=== PATIENT | male | born 1960 | race Caucasian/White ===

== ENCOUNTER 2016-05-04 11:55 | Emergency (ER) | payer OTHER ==
[~2016-05-04] VITALS: Ht 175.3 cm; Wt 93.5 kg
[~2016-05-04 11:55] MED LIST: ALBUTEROL SULF8.5 GM IH; ALPRAZOLAM1 MG; ALPRAZOLAM1 MG PO; AMBIEN10 M1; AMBIEN10 M1 PO; AMOX TR-K CLV1 EAC4 PO; ATIVAN1 M1; ATIVAN1 M1 PO; Ambien PO; Augmentin PO; BACTRIM,SEPT1 TABLET PO; BENADRYL25 MG PO; CIPRO500 MG PO; COLACE100 MG PO; DAILY VALUE1 EACH PO; DIAZEPAM5 MG PO; DILAUDID4 MG PO; DOCUSATE SODIU100 MG; FEOSOL325 MG PO; FLAGYL500 MG PO; GLIPIZIDE XL5 MG PO; GLIPIZIDE-METF1 EAC1 PO; GLIPIZIDE5 M1 PO; GLUCOPHAGE XR1000 MG PO; LEVAQUIN500 MG PO; LEVAQUIN750 MG PO; LEVOFLOXACIN750 MG PO; LUNESTA2 MG; LUNESTA2 MG PO; MEDROL DOSEPAK4 MG PO; METAGLIP PO; METHADONE10 MG PO; MOTRIN800 MG PO; MS CONTIN,ORAMO30 MG PO; Methadone HCl PO; Methadone PO; NOHOMEMEDS; OXYCODONE HCL15 MG PO; OXYCODONE15 MG PO; PEPCID20 MG PO; PERCOCET 10/1 TABLET PO; PREDNISONE10 MG; PREDNISONE10 MG PO; PROMETHAZINE HC25 M1; PriLOSEC PO; TRAZODONE HCL50 MG PO; Tylenol Regular Stre PO; ULTRAM50 MG PO; VALIUM5 MG PO; XANAX1 MG PO; ZANTAC150 MG PO; ZOFRAN4 MG PO; ZOLPIDEM TARTRA10 MG; Zocor PO; oxyCODONE PO
[2016-05-04 12:49] LABS: HEMATOCRIT 39.5 % (38.0-50.0); MCH 29.1 PG (29.0-34.0); MCHC 34.2 G/DL (30.0-36.0); MCV 85.1 FL (86-99); MEAN PLAT.VOLUME 10.4 uM^3 (9.0-12.4); PLATELET COUNT 114 K/uL (156-360); RBC DIS.WIDTH-CV 13.5 % (11.8-14.6); RBC DIS.WIDTH-SD 41.9 % (39-53); RED BLOOD COUNT 4.64 M/uL (4.00-5.50); WHITE BLOOD COUNT 3.4 K/uL (4.1-10.2)
[2016-05-04 13:00] LABS: CHLORIDE 94 mEq/L (99-109); POTASSIUM 3.3 mEq/L (3.7-5.4); SODIUM 134 mEq/L (136-147)
[2016-05-04 13:02] LABS: GLUCOSE 105 mg/dL (70-99)
[2016-05-04 13:03] LABS: ANION GAP 11 MEQ/L (2-14)
[2016-05-04 13:06] LABS: GFR ESTIMATE (CALCULATED) > 59 mL/min/
[2016-05-04 13:07] LABS: UREA NITROGEN (BUN) 8 mg/dL (9-23)
[2016-05-04 13:11] LABS: TROP-I INTERPRETATION NEGATIVE; TROPONIN-I < 0.01 ng/mL (0.0-0.30)
[2016-05-04] MEDS ORDERED: HYCODAN SYRUP480 ML PO (13:34)
[2016-05-04] MEDS ORDERED: VENTOLIN HFA18 GM IH (13:34)
[2016-05-04] MEDS ORDERED: LEVAQUIN750 MG PO (13:43)
[2016-05-04 13:53] VITALS: BP 124/66
== END 2016-05-04 13:55 | disposition home or self-care (01) ==
LOC: EME 11:55
PROVIDERS: Nurse Practitioner Family
DX: J18.9 Pneumonia, unspecified organism (principal); Z85.038 Personal history of other malignant neoplasm of large intestine; C78.7 Secondary malignant neoplasm of liver and intrahepatic bile duct; Z86.14 Personal history of Methicillin resistant Staphylococcus aureus infection; Z90.89 Acquired absence of other organs; E11.9 Type 2 diabetes mellitus without complications; Z79.84 Long term (current) use of oral hypoglycemic drugs; M54.9 Dorsalgia, unspecified; G89.29 Other chronic pain
CPT/HCPCS: 71020; 80048; 84484; 85027; 93005; 94640; 99281; 99284

== ENCOUNTER 2016-05-10 16:12 | Emergency (ER) | payer OTHER ==
[~2016-05-10] VITALS: Ht 175.3 cm; Wt 94.1 kg
[~2016-05-10 16:12] MED LIST changes: +HYCODAN SYRUP480 ML PO; +VENTOLIN HFA18 GM IH
[2016-05-10 18:50] LABS: SODIUM 138 mEq/L (136-147)
[2016-05-10 18:51] LABS: GLUCOSE 134 mg/dL (70-99)
[2016-05-10 18:53] LABS: ANION GAP 11 MEQ/L (2-14); CHLORIDE 107 mEq/L (99-109)
[2016-05-10 18:55] LABS: GFR ESTIMATE (CALCULATED) > 59 mL/min/
[2016-05-10 18:56] LABS: UREA NITROGEN (BUN) 11 mg/dL (9-23)
[2016-05-10 18:58] LABS: EOSINOPHIL (%) 5.7 % (0-5); EOSINOPHIL COUNT 0.3 K/uL (0-0.3); HEMATOCRIT 39.4 % (38.0-50.0); IMMATURE GRANULOCYTE COUNT 0.5 K/uL; LYMPHOCYTE COUNT 1.8 K/uL (1.0-2.8); MCH 28.8 PG (29.0-34.0); MCHC 33.8 G/DL (30.0-36.0); MCV 85.3 FL (86-99); MEAN PLAT.VOLUME 10.3 uM^3 (9.0-12.4); MONOCYTE (%) 7.6 % (3-12); MONOCYTE COUNT 0.4 K/uL (0-0.8); NEUTROPHIL (%) 51.5 % (45-76); NEUTROPHIL COUNT 2.7 K/uL (1.8-6.4); PLATELET COUNT 183 K/uL (156-360); RBC DIS.WIDTH-CV 13.7 % (11.8-14.6); RED BLOOD COUNT 4.62 M/uL (4.00-5.50); WHITE BLOOD COUNT 5.2 K/uL (4.1-10.2)
[2016-05-10] MEDS ORDERED: INDOCIN50 MG PO (20:18)
[2016-05-10 20:54] VITALS: BP 109/71
== END 2016-05-10 21:06 | disposition home or self-care (01) ==
LOC: EME 16:12
PROVIDERS: Physician Assistant
PROC: 3E0234Z Introduction of Serum, Toxoid and Vaccine into Muscle, Percutaneous Approach (ICD-10-PCS; principal; 2016-05-10)
DX: T65.91XA Toxic effect of unspecified substance, accidental (unintentional), initial encounter (principal); T23.472A Corrosion of unspecified degree of left wrist, initial encounter; J40 Bronchitis, not specified as acute or chronic; M79.602 Pain in left arm; Z23 Encounter for immunization; Z85.05 Personal history of malignant neoplasm of liver; Z85.038 Personal history of other malignant neoplasm of large intestine; Z79.891 Long term (current) use of opiate analgesic
CPT/HCPCS: 71275; 80048; 83880; 85025; 99281; 99285; J1885; J3010; J7030

== ENCOUNTER 2016-05-12 23:55 | Inpatient (IN) | payer OTHER ==
[~2016-05-12] VITALS: Ht 175.3 cm; Wt 82.5 kg
[~2016-05-12 23:55] MED LIST changes: +INDOCIN50 MG PO
[2016-05-13 00:14] LABS: BASOPHIL COUNT 0.1 K/uL (0-0.1); EOSINOPHIL COUNT 0.2 K/uL (0-0.3); HEMATOCRIT 38.8 % (38.0-50.0); IMMATURE GRANULOCYTE (%) 2.6 % (0.0-0.7); IMMATURE GRANULOCYTE COUNT 4.5 K/uL; LYMPHOCYTE COUNT 3.9 K/uL (1.0-2.8); MCH 29.2 PG (29.0-34.0); MCHC 33.8 G/DL (30.0-36.0); MCV 86.4 FL (86-99); MEAN PLAT.VOLUME 9.7 uM^3 (9.0-12.4); MONOCYTE (%) 6.1 % (3-12); MONOCYTE COUNT 1.1 K/uL (0-0.8); NEUTROPHIL (%) 67.3 % (45-76); NEUTROPHIL COUNT 11.5 K/uL (1.8-6.4); RBC DIS.WIDTH-CV 14.5 % (11.8-14.6); RBC DIS.WIDTH-SD 44.5 % (39-53); RED BLOOD COUNT 4.49 M/uL (4.00-5.50); WHITE BLOOD COUNT 17.2 K/uL (4.1-10.2)
[2016-05-13 00:15] LABS: PLATELET COUNT 331 K/uL (156-360)
[2016-05-13 00:24] LABS: AMYLASE 77 IU/L (1-118); CHLORIDE 107 mEq/L (99-109); POTASSIUM 2.8 mEq/L (3.7-5.4); SODIUM 144 mEq/L (136-147)
[2016-05-13 00:26] LABS: GLUCOSE 208 mg/dL (70-99)
[2016-05-13 00:27] LABS: ANION GAP 18 MEQ/L (2-14)
[2016-05-13 00:28] LABS: SERUM ETHYL ALCOHOL 97 mg/dL
[2016-05-13 00:29] LABS: GFR ESTIMATE (CALCULATED) > 59 mL/min/
[2016-05-13 00:30] LABS: UREA NITROGEN (BUN) 13 mg/dL (9-23)
[2016-05-13 00:32] LABS: LIPASE 79 U/L (1.0-51.0)
[2016-05-13] MEDS ORDERED: OXYCODONE HCL10 MG PO (01:31)
[2016-05-13 01:42] LABS: BASE EXCESS -3.6 mEq/L (-3 to +3); BICARBONATE 20.6 mEq/L (22-26); CARBOXY HGB 2.3 % (0-5); COMMENTS - BLOOD GASES C+A+; DEVICE NC; METHEMOGLOBIN 0.8 % (0-1.5); O2 FLOW 6 L/MIN; PCO2 34 mm Hg (35-45); PO2 57 mm Hg (80-100); SITE RR; pH 7.39 (7.35-7.45)
[2016-05-13 06:36] LABS: HEMATOCRIT 38.5 % (38.0-50.0); MCH 30.1 PG (29.0-34.0); MCV 88.5 FL (86-99); MEAN PLAT.VOLUME 10.6 uM^3 (9.0-12.4); PLATELET COUNT 287 K/uL (156-360); RBC DIS.WIDTH-CV 14.6 % (11.8-14.6); RBC DIS.WIDTH-SD 47.2 % (39-53); RED BLOOD COUNT 4.35 M/uL (4.00-5.50); WHITE BLOOD COUNT 17.9 K/uL (4.1-10.2)
[2016-05-13 06:59] LABS: ALKALINE PHOSPHATASE 100 IU/L (3-129); ANION GAP 17 MEQ/L (2-14); CHLORIDE 102 MEQ/L (99-109); GFR ESTIMATE (CALCULATED) > 59 mL/min/; GLUCOSE 175 mg/dL (70-99); SAMPLE HEMOLYSIS CHECK 0; SAMPLE ICTERIC CHECK 0; SAMPLE LIPEMIA CHECK 0; SODIUM 142 MEQ/L (136-147); TOTAL BILIRUBIN 0.4 MG/DL (0.0-1.0); UREA NITROGEN (BUN) 12 mg/dL (9-23)
[2016-05-13 07:13] LABS: POTASSIUM 4.2 MEQ/L (3.7-5.4)
[2016-05-13 09:48] LABS: ABS NEUTROPHIL COUNT 12.01; ANISOCYTOSIS 1+; EOSINOPHIL ABS CT 0.17; HYPOCHROMASIA OCC; MACROCYTES OCC; MICROCYTOSIS OCC; PLAT.SUFFICIENCY ADEQUATE; POLYCHROMASIA OCC; TEAR DROP CELLS OCC; USER ID TLW
[2016-05-13 17:29] VITALS: BP 168/84
[2016-05-13 20:10] VITALS: BP 149/87
[2016-05-13 22:04] LABS: POINT-OF-CARE METER ID UU14188577
[2016-05-13 23:39] VITALS: BP 140/85
[2016-05-14] VITALS (17 sets, daily range): BP systolic 108–151; BP diastolic 29–98
[2016-05-14 06:12] LABS: EOSINOPHIL (%) 0.8 % (0-5); EOSINOPHIL COUNT 0.1 K/uL (0-0.3); HEMATOCRIT 36.6 % (38.0-50.0); IMMATURE GRANULOCYTE (%) 0.4 % (0.0-0.7); LYMPHOCYTE COUNT 1.5 K/uL (1.0-2.8); MCH 29.3 PG (29.0-34.0); MCHC 32.5 G/DL (30.0-36.0); MCV 90.1 FL (86-99); MONOCYTE (%) 11.2 % (3-12); MONOCYTE COUNT 0.9 K/uL (0-0.8); NEUTROPHIL (%) 67.5 % (45-76); NEUTROPHIL COUNT 5.2 K/uL (1.8-6.4); RBC DIS.WIDTH-CV 14.8 % (11.8-14.6); RBC DIS.WIDTH-SD 48.8 % (39-53); RED BLOOD COUNT 4.06 M/uL (4.00-5.50)
[2016-05-14 06:19] LABS: WHITE BLOOD COUNT 7.7 K/uL (4.1-10.2)
[2016-05-14 08:00] LABS: MEAN PLAT.VOLUME 10.5 uM^3 (9.0-12.4); PLAT.SUFFICIENCY ADEQUATE; PLATELET COUNT 180 K/uL (156-360); USER ID STC
[2016-05-14 08:54] LABS: BASE EXCESS 6.7 mEq/L (-3 to +3); BICARBONATE 32.8 mEq/L (22-26); CARBOXY HGB 2.4 % (0-5); METHEMOGLOBIN 1.3 % (0-1.5); PCO2 53 mm Hg (35-45)
[2016-05-14 08:55] LABS: COMMENTS - BLOOD GASES A+C+; DEVICE NRBM; FI02 100 %; O2 FLOW 15 L/MIN; PO2 48 mm Hg (80-100); SITE LR; TOTAL RESP RATE 32 resp/min
[2016-05-14 10:37] LABS: MAGNESIUM 1.5 mg/dl (1.3-2.7)
[2016-05-14 11:35] LABS: BASE EXCESS 5.7 mEq/L (-3 to +3); BICARBONATE 31.6 mEq/L (22-26); METHEMOGLOBIN 1.1 % (0-1.5); PCO2 51 mm Hg (35-45); PO2 87 mm Hg (80-100)
[2016-05-14 11:36] LABS: COMMENTS - BLOOD GASES NAC+; DEVICE PB 840 MASK; FI02 70 %; MODE SPONT; PEEP 5 CM/H20; PRES. SUPPORT 10 CM/H2O; SITE RR; TOTAL RESP RATE 20 resp/min
[2016-05-14 12:13] LABS: METH RESISTANT S AUREUS PCR POSITIVE (NEGATIVE)
[2016-05-14 12:23] LABS: PROBE CHECK PASS
[2016-05-14 15:25] LABS: BICARBONATE 30.9 mEq/L (22-26); CARBOXY HGB 1.7 % (0-5); COMMENTS - BLOOD GASES A+C+; DEVICE PB 840 MASK; FI02 70 %; METHEMOGLOBIN 1.2 % (0-1.5); MODE SPONT; PCO2 51 mm Hg (35-45); PEEP 5 CM/H20; PO2 53 mm Hg (80-100); PRES. SUPPORT 10 CM/H2O; SITE RR; TOTAL RESP RATE 24 resp/min; pH 7.39 (7.35-7.45)
[2016-05-14 16:38] LABS: BICARBONATE 31.4 mEq/L (22-26); CARBOXY HGB 1.8 % (0-5); COMMENTS - BLOOD GASES A+C+; DEVICE PB 840 MASK VENT; FI02 100 %; METHEMOGLOBIN 1.2 % (0-1.5); MODE SPONT; PCO2 53 mm Hg (35-45); PEEP 6 CM/H20; PO2 94 mm Hg (80-100); PRES. SUPPORT 14 CM/H2O; SITE RR; TOTAL RESP RATE 16 resp/min; pH 7.38 (7.35-7.45)
[2016-05-15] VITALS (22 sets, daily range): BP systolic 85–153; BP diastolic 42–88
[2016-05-15 01:57] LABS: POINT-OF-CARE METER ID UU13113748
[2016-05-15 04:17] LABS: BASE EXCESS 4.8 mEq/L (-3 to +3); BICARBONATE 30.4 mEq/L (22-26); CARBOXY HGB 1.6 % (0-5); COMMENTS - BLOOD GASES A+C+; DEVICE VENT; FI02 60 %; MECHANICAL RATE 14 resp/min; METHEMOGLOBIN 1.3 % (0-1.5); MODE A/C; PCO2 48 mm Hg (35-45); PEEP 5 CM/H20; PO2 70 mm Hg (80-100); SITE RR; TIDAL VOLUME 400 ML; TOTAL RESP RATE 25 resp/min; pH 7.41 (7.35-7.45)
[2016-05-15 06:00] LABS: POINT-OF-CARE METER ID UU13113748
[2016-05-15 06:30] LABS: EOSINOPHIL (%) 0 % (0-5); HEMATOCRIT 38.1 % (38.0-50.0); IMMATURE GRANULOCYTE (%) 0.3 % (0.0-0.7); LYMPHOCYTE COUNT 0.6 K/uL (1.0-2.8); MCH 27.9 PG (29.0-34.0); MCHC 31.8 G/DL (30.0-36.0); MEAN PLAT.VOLUME 10.7 uM^3 (9.0-12.4); MONOCYTE COUNT 0.7 K/uL (0-0.8); NEUTROPHIL (%) 88.3 % (45-76); NEUTROPHIL COUNT 10.6 K/uL (1.8-6.4); PLATELET COUNT 167 K/uL (156-360); RBC DIS.WIDTH-CV 13.8 % (11.8-14.6); RBC DIS.WIDTH-SD 44.3 % (39-53); RED BLOOD COUNT 4.33 M/uL (4.00-5.50)
[2016-05-15 06:33] LABS: WHITE BLOOD COUNT 12.1 K/uL (4.1-10.2)
[2016-05-15 06:43] LABS: ANION GAP 11 MEQ/L (2-14); CHLORIDE 101 MEQ/L (99-109); GFR ESTIMATE (CALCULATED) > 59 mL/min/; GLUCOSE 193 mg/dL (70-99); POTASSIUM 4.1 MEQ/L (3.7-5.4); SAMPLE HEMOLYSIS CHECK 0; SAMPLE ICTERIC CHECK 0; SAMPLE LIPEMIA CHECK 0; SODIUM 140 MEQ/L (136-147); UREA NITROGEN (BUN) 14 mg/dL (9-23)
[2016-05-15 06:45] LABS: MAGNESIUM 2.1 mg/dl (1.3-2.7)
[2016-05-15 10:27] LABS: BASE EXCESS 5.7 mEq/L (-3 to +3); BICARBONATE 30.6 mEq/L (22-26); CARBOXY HGB 1.3 % (0-5); METHEMOGLOBIN 1.3 % (0-1.5); PCO2 45 mm Hg (35-45); PO2 69 mm Hg (80-100); pH 7.44 (7.35-7.45)
[2016-05-15 10:30] LABS: POINT-OF-CARE METER ID UU13113748
[2016-05-15 10:30] LABS: COMMENTS - BLOOD GASES AC+; DEVICE 840 VENTILATOR; FI02 50 %; SITE LR
[2016-05-15 10:31] LABS: CONTINUOUS POS AIRWAY PRESSURE 10 cm H2O; MODE SPONT; PRES. SUPPORT 5 CM/H2O; TOTAL RESP RATE 26 resp/min
[2016-05-15 13:27] LABS: POINT-OF-CARE METER ID UU13113748
[2016-05-15 17:06] LABS: POINT-OF-CARE METER ID UU13113748
[2016-05-15 21:16] LABS: POINT-OF-CARE METER ID UU13113748
[2016-05-16] VITALS (16 sets, daily range): BP systolic 96–175; BP diastolic 45–95
[2016-05-16 02:03] LABS: POINT-OF-CARE METER ID UU13113748
[2016-05-16 05:26] LABS: POINT-OF-CARE METER ID UU13113748
[2016-05-16 05:35] LABS: EOSINOPHIL (%) 0.2 % (0-5); HEMATOCRIT 35.3 % (38.0-50.0); IMMATURE GRANULOCYTE (%) 0.5 % (0.0-0.7); IMMATURE GRANULOCYTE COUNT 0.1 K/uL; LYMPHOCYTE COUNT 1.5 K/uL (1.0-2.8); MCH 28.2 PG (29.0-34.0); MCHC 30.9 G/DL (30.0-36.0); MCV 91.2 FL (86-99); MEAN PLAT.VOLUME 10.8 uM^3 (9.0-12.4); MONOCYTE (%) 8.1 % (3-12); MONOCYTE COUNT 0.8 K/uL (0-0.8); NEUTROPHIL (%) 76.6 % (45-76); PLATELET COUNT 174 K/uL (156-360); RBC DIS.WIDTH-CV 14.7 % (11.8-14.6); RBC DIS.WIDTH-SD 48.5 % (39-53); RED BLOOD COUNT 3.87 M/uL (4.00-5.50); WHITE BLOOD COUNT 10.4 K/uL (4.1-10.2)
[2016-05-16 06:11] LABS: ANION GAP 9 MEQ/L (2-14); CHLORIDE 103 MEQ/L (99-109); GFR ESTIMATE (CALCULATED) > 59 mL/min/; GLUCOSE 143 mg/dL (70-99); POTASSIUM 3.5 MEQ/L (3.7-5.4); SAMPLE HEMOLYSIS CHECK 0; SAMPLE ICTERIC CHECK 0; SAMPLE LIPEMIA CHECK 0; SODIUM 140 MEQ/L (136-147); UREA NITROGEN (BUN) 20 mg/dL (9-23)
[2016-05-16 06:12] LABS: MAGNESIUM 2.5 mg/dl (1.3-2.7)
[2016-05-16 12:05] LABS: POINT-OF-CARE METER ID UU13113803
[2016-05-16 17:10] LABS: POINT-OF-CARE METER ID UU13113803
[2016-05-16 21:32] LABS: POINT-OF-CARE METER ID UU13113803
[2016-05-17 01:00] VITALS: BP 112/64
[2016-05-17 03:00] VITALS: BP 112/62
[2016-05-17 05:00] VITALS: BP 130/79
[2016-05-17 06:48] LABS: EOSINOPHIL (%) 1.3 % (0-5); EOSINOPHIL COUNT 0.1 K/uL (0-0.3); HEMATOCRIT 32.6 % (38.0-50.0); IMMATURE GRANULOCYTE COUNT 0.1 K/uL; LYMPHOCYTE COUNT 1.5 K/uL (1.0-2.8); MCH 29.3 PG (29.0-34.0); MCHC 32.8 G/DL (30.0-36.0); MCV 89.3 FL (86-99); MEAN PLAT.VOLUME 11.1 uM^3 (9.0-12.4); MONOCYTE (%) 10.9 % (3-12); MONOCYTE COUNT 0.9 K/uL (0-0.8); NEUTROPHIL COUNT 5.7 K/uL (1.8-6.4); PLATELET COUNT 175 K/uL (156-360); RBC DIS.WIDTH-CV 14.4 % (11.8-14.6); RBC DIS.WIDTH-SD 46.6 % (39-53); RED BLOOD COUNT 3.65 M/uL (4.00-5.50); WHITE BLOOD COUNT 8.3 K/uL (4.1-10.2)
[2016-05-17 07:00] VITALS: BP 115/38
[2016-05-17 07:08] LABS: ANION GAP 8 MEQ/L (2-14); CHLORIDE 99 MEQ/L (99-109); GFR ESTIMATE (CALCULATED) > 59 mL/min/; GLUCOSE 135 mg/dL (70-99); SAMPLE HEMOLYSIS CHECK 0; SAMPLE ICTERIC CHECK 0; SAMPLE LIPEMIA CHECK 0; SODIUM 137 MEQ/L (136-147); UREA NITROGEN (BUN) 13 mg/dL (9-23)
[2016-05-17 07:11] LABS: MAGNESIUM 1.7 mg/dl (1.3-2.7)
[2016-05-17 11:55] LABS: POINT-OF-CARE METER ID UU13113748
[2016-05-17 16:00] VITALS: BP 115/76
[2016-05-17 20:00] VITALS: BP 120/82
[2016-05-18] VITALS (7 sets, daily range): BP systolic 111–154; BP diastolic 64–97
[2016-05-18 06:48] LABS: EOSINOPHIL (%) 0.7 % (0-5); EOSINOPHIL COUNT 0.1 K/uL (0-0.3); HEMATOCRIT 38.1 % (38.0-50.0); IMMATURE GRANULOCYTE (%) 0.5 % (0.0-0.7); IMMATURE GRANULOCYTE COUNT 0.1 K/uL; LYMPHOCYTE COUNT 0.7 K/uL (1.0-2.8); MCH 29.4 PG (29.0-34.0); MCHC 33.6 G/DL (30.0-36.0); MCV 87.6 FL (86-99); MEAN PLAT.VOLUME 11.1 uM^3 (9.0-12.4); MONOCYTE COUNT 0.4 K/uL (0-0.8); NEUTROPHIL (%) 86.7 % (45-76); PLATELET COUNT 205 K/uL (156-360); RBC DIS.WIDTH-CV 13.8 % (11.8-14.6); RED BLOOD COUNT 4.35 M/uL (4.00-5.50); WHITE BLOOD COUNT 9.2 K/uL (4.1-10.2)
[2016-05-18 07:19] LABS: ANION GAP 8 MEQ/L (2-14); CHLORIDE 97 MEQ/L (99-109); GFR ESTIMATE (CALCULATED) > 59 mL/min/; GLUCOSE 199 mg/dL (70-99); SAMPLE HEMOLYSIS CHECK 0; SAMPLE ICTERIC CHECK 0; SAMPLE LIPEMIA CHECK 0; SODIUM 133 MEQ/L (136-147); UREA NITROGEN (BUN) 10 mg/dL (9-23)
[2016-05-18 07:23] LABS: POTASSIUM 5.5 MEQ/L (3.7-5.4)
[2016-05-18 14:14] LABS: POINT-OF-CARE METER ID UU13113731
[2016-05-18 18:19] LABS: POINT-OF-CARE METER ID UU13113731
[2016-05-18 23:01] LABS: POINT-OF-CARE METER ID UU13113731
[2016-05-19] VITALS (7 sets, daily range): BP systolic 99–144; BP diastolic 57–79
[2016-05-19 06:08] LABS: EOSINOPHIL (%) 0.4 % (0-5); HEMATOCRIT 37.1 % (38.0-50.0); IMMATURE GRANULOCYTE (%) 1.1 % (0.0-0.7); IMMATURE GRANULOCYTE COUNT 0.1 K/uL; LYMPHOCYTE COUNT 0.9 K/uL (1.0-2.8); MCH 27.8 PG (29.0-34.0); MCHC 32.3 G/DL (30.0-36.0); MCV 86.1 FL (86-99); MEAN PLAT.VOLUME 10.6 uM^3 (9.0-12.4); MONOCYTE (%) 8.4 % (3-12); MONOCYTE COUNT 0.7 K/uL (0-0.8); NEUTROPHIL (%) 79.7 % (45-76); NEUTROPHIL COUNT 6.8 K/uL (1.8-6.4); PLATELET COUNT 225 K/uL (156-360); RBC DIS.WIDTH-CV 13.7 % (11.8-14.6); RBC DIS.WIDTH-SD 42.7 % (39-53); RED BLOOD COUNT 4.31 M/uL (4.00-5.50); WHITE BLOOD COUNT 8.5 K/uL (4.1-10.2)
[2016-05-19 06:24] LABS: ANION GAP 9 MEQ/L (2-14); CHLORIDE 94 MEQ/L (99-109); GFR ESTIMATE (CALCULATED) > 59 mL/min/; GLUCOSE 171 mg/dL (70-99); SAMPLE HEMOLYSIS CHECK 0; SAMPLE ICTERIC CHECK 0; SAMPLE LIPEMIA CHECK 0; SODIUM 131 MEQ/L (136-147); UREA NITROGEN (BUN) 16 mg/dL (9-23)
[2016-05-19 12:09] LABS: POINT-OF-CARE METER ID UU13113748
[2016-05-19 21:30] LABS: POINT-OF-CARE METER ID UU14188577
[2016-05-20] VITALS: BP 126/80
[2016-05-20 04:00] VITALS: BP 119/74
[2016-05-20 05:03] LABS: EOSINOPHIL (%) 0.7 % (0-5); EOSINOPHIL COUNT 0.1 K/uL (0-0.3); HEMATOCRIT 41.8 % (38.0-50.0); IMMATURE GRANULOCYTE (%) 1.5 % (0.0-0.7); IMMATURE GRANULOCYTE COUNT 1.1 K/uL; MCH 28.7 PG (29.0-34.0); MCHC 33.5 G/DL (30.0-36.0); MCV 85.8 FL (86-99); MEAN PLAT.VOLUME 10.5 uM^3 (9.0-12.4); MONOCYTE (%) 16.1 % (3-12); MONOCYTE COUNT 1.2 K/uL (0-0.8); NEUTROPHIL (%) 68.3 % (45-76); NEUTROPHIL COUNT 5.2 K/uL (1.8-6.4); PLATELET COUNT 279 K/uL (156-360); RBC DIS.WIDTH-CV 14.1 % (11.8-14.6); RBC DIS.WIDTH-SD 43.1 % (39-53); RED BLOOD COUNT 4.87 M/uL (4.00-5.50); WHITE BLOOD COUNT 7.6 K/uL (4.1-10.2)
[2016-05-20 05:05] LABS: CHLORIDE 95 mEq/L (99-109); SODIUM 133 mEq/L (136-147)
[2016-05-20 05:06] LABS: MAGNESIUM 2.2 mg/dL (1.3-2.7)
[2016-05-20 05:07] LABS: GLUCOSE 155 mg/dL (70-99)
[2016-05-20 05:08] LABS: ANION GAP 12 MEQ/L (2-14)
[2016-05-20 05:11] LABS: GFR ESTIMATE (CALCULATED) > 59 mL/min/
[2016-05-20 05:12] LABS: UREA NITROGEN (BUN) 20 mg/dL (9-23)
[2016-05-20 08:21] VITALS: BP 95/58
[2016-05-20 11:21] LABS: POINT-OF-CARE METER ID UU14149397
[2016-05-20 17:34] VITALS: BP 104/69
[2016-05-20 22:34] LABS: POINT-OF-CARE METER ID UU14149397
[2016-05-20 23:35] VITALS: BP 120/78
[2016-05-21 05:04] LABS: HEMATOCRIT 39.3 % (38.0-50.0); MCH 28.9 PG (29.0-34.0); MCHC 33.6 G/DL (30.0-36.0); MEAN PLAT.VOLUME 10.3 uM^3 (9.0-12.4); PLATELET COUNT 220 K/uL (156-360); RBC DIS.WIDTH-SD 42.6 % (39-53); RED BLOOD COUNT 4.57 M/uL (4.00-5.50); WHITE BLOOD COUNT 6.5 K/uL (4.1-10.2)
[2016-05-21 05:08] LABS: EOSINOPHIL (%) 0 % (0-5); IMMATURE GRANULOCYTE (%) 1.2 % (0.0-0.7); IMMATURE GRANULOCYTE COUNT 0.8 K/uL; LYMPHOCYTE COUNT 1.2 K/uL (1.0-2.8); MONOCYTE (%) 16.7 % (3-12); MONOCYTE COUNT 1.1 K/uL (0-0.8); NEUTROPHIL COUNT 4.2 K/uL (1.8-6.4)
[2016-05-21 05:14] LABS: CHLORIDE 95 mEq/L (99-109); POTASSIUM 4.6 mEq/L (3.7-5.4); SODIUM 133 mEq/L (136-147)
[2016-05-21 05:15] LABS: MAGNESIUM 2.2 mg/dL (1.3-2.7)
[2016-05-21 05:16] LABS: GLUCOSE 168 mg/dL (70-99)
[2016-05-21 05:18] LABS: ANION GAP 10 MEQ/L (2-14)
[2016-05-21 05:20] LABS: GFR ESTIMATE (CALCULATED) > 59 mL/min/
[2016-05-21 05:21] LABS: UREA NITROGEN (BUN) 27 mg/dL (9-23)
[2016-05-21 07:05] LABS: POINT-OF-CARE METER ID UU14149397
[2016-05-21 08:40] VITALS: BP 120/78
[2016-05-21 15:30] VITALS: BP 134/78
[2016-05-21] MEDS ORDERED: OXYCODONE HCL10 MG PO (16:45)
== END 2016-05-21 18:00 | disposition home or self-care (01) | DRG 199 ==
LOC: TRA 23:55 → EDOF 05-13 01:34 → 4WEST 05-13 01:34 → 4EAST 05-13 02:59 → 3EAST 05-13 16:08 → 4WEST 05-14 09:10 → 3EAST 05-19 15:33
PROVIDERS: Emergency Medicine; Hospitalist; Internal Medicine Nephrology; Surgery
PROC: 0W9930Z Drainage of Right Pleural Cavity with Drainage Device, Percutaneous Approach (ICD-10-PCS; principal; 2016-05-14)
PROC: 5A0935Z Assistance with Respiratory Ventilation, Less than 24 Consecutive Hours (ICD-10-PCS; 2016-05-14)
PROC: 0BH17EZ Insertion of Endotracheal Airway into Trachea, Via Natural or Artificial Opening (ICD-10-PCS; 2016-05-15)
PROC: 0BJ08ZZ Inspection of Tracheobronchial Tree, Via Natural or Artificial Opening Endoscopic (ICD-10-PCS; 2016-05-15)
PROC: 0WP8X0Z Removal of Drainage Device from Chest Wall, External Approach (ICD-10-PCS; 2016-05-20)
DX: S27.2XXA Traumatic hemopneumothorax, initial encounter (principal); J96.01 Acute respiratory failure with hypoxia; S22.5XXA Flail chest, initial encounter for closed fracture; S27.331A Laceration of lung, unilateral, initial encounter; S32.039A Unspecified fracture of third lumbar vertebra, initial encounter for closed fracture; S32.049A Unspecified fracture of fourth lumbar vertebra, initial encounter for closed fracture; S27.321A Contusion of lung, unilateral, initial encounter; J90 Pleural effusion, not elsewhere classified; F11.20 Opioid dependence, uncomplicated; F10.239 Alcohol dependence with withdrawal, unspecified; J98.09 Other diseases of bronchus, not elsewhere classified; E11.9 Type 2 diabetes mellitus without complications; E83.51 Hypocalcemia; S42.001A Fracture of unspecified part of right clavicle, initial encounter for closed fracture; S42.101A Fracture of unspecified part of scapula, right shoulder, initial encounter for closed fracture; E83.42 Hypomagnesemia; W10.9XXA Fall (on) (from) unspecified stairs and steps, initial encounter; Y93.9 Activity, unspecified; Y92.009 Unspecified place in unspecified non-institutional (private) residence as the place of occurrence of the external cause; E87.6 Hypokalemia; Y90.4 Blood alcohol level of 80-99 mg/100 ml; S60.812A Abrasion of left wrist, initial encounter; A49.02 Methicillin resistant Staphylococcus aureus infection, unspecified site; Z85.038 Personal history of other malignant neoplasm of large intestine
CPT/HCPCS: 36600; 70450; 71010; 71020; 71260; 72125; 72129; 72132; 74177; 80048; 80053; 81003; 82150; 82803; 82948; 83690; 83735; 84100; 85025; 85027; 86850; 86900; 86901; 87070; 87077; 87147; 87186; 87205; 87641; 93005; 94002; 94003; 94640; 94640 76; 94760; 94799; 97530 GP; 99202; 99281; 99285; G0480; J0330; J0690; J0696; J1170; J1630; J1650; J1815; J1885; J1940; J2060; J2250; J2310; J2405; J2704; J2920; J2930; J3010; J3370; J3411; J3475; J3480; J3486; J7030; J7040; J7050; J7512; S0028

== ENCOUNTER 2016-05-27 14:31 | Emergency (ER) | payer OTHER ==
[~2016-05-27] VITALS: Ht 175.3 cm; Wt 84.1 kg
[~2016-05-27 14:31] MED LIST changes: +OXYCODONE HCL10 MG PO
[2016-05-27 16:43] LABS: POINT-OF-CARE METER ID UU13113800
[2016-05-27] MEDS ORDERED: DILAUDID4 MG PO (17:07)
[2016-05-27 17:31] VITALS: BP 115/76
[2016-05-28] MEDS ORDERED: ALPRAZOLAM1 MG PO (21:26)
[2016-05-28] MEDS ORDERED: METAGLIP 5/51 TABLET PO (21:47)
[2016-05-28] MEDS ORDERED: MORPHINE SULFAT30 M7 PO (21:47)
== END 2016-05-27 17:32 | disposition home or self-care (01) ==
LOC: EME 14:31
PROVIDERS: Physician Assistant
DX: S22.41XA Multiple fractures of ribs, right side, initial encounter for closed fracture (principal); E11.9 Type 2 diabetes mellitus without complications; G89.29 Other chronic pain
CPT/HCPCS: 71020; 82948; 99281; 99284; J3010

== ENCOUNTER 2016-05-28 16:14 | Inpatient (IN) | payer OTHER ==
[~2016-05-28] VITALS: Ht 175.3 cm; Wt 29.9 kg
[2016-05-28 17:15] LABS: HEMATOCRIT 39.3 % (38.0-50.0); MCH 28.9 PG (29.0-34.0); MCHC 33.1 G/DL (30.0-36.0); MCV 87.3 FL (86-99); MEAN PLAT.VOLUME 9.4 uM^3 (9.0-12.4); PLATELET COUNT 167 K/uL (156-360); RBC DIS.WIDTH-CV 13.7 % (11.8-14.6); RBC DIS.WIDTH-SD 42.3 % (39-53); WHITE BLOOD COUNT 13.5 K/uL (4.1-10.2)
[2016-05-28 17:20] LABS: CHLORIDE 101 mEq/L (99-109); SODIUM 138 mEq/L (136-147)
[2016-05-28 17:22] LABS: GLUCOSE 147 mg/dL (70-99)
[2016-05-28 17:23] LABS: ANION GAP 10 MEQ/L (2-14)
[2016-05-28 17:26] LABS: GFR ESTIMATE (CALCULATED) > 59 mL/min/
[2016-05-28 17:27] LABS: UREA NITROGEN (BUN) 15 mg/dL (9-23)
[2016-05-28 18:01] LABS: D-DIMER ELISA > 4.00 mg/L FEU (< 0.57)
[2016-05-28 18:02] LABS: TROP-I INTERPRETATION NEGATIVE; TROPONIN-I < 0.01 ng/mL (0.0-0.30)
[2016-05-28 21:07] LABS: MAGNESIUM 1.5 mg/dL (1.3-2.7)
[2016-05-28 21:11] LABS: TOTAL BILIRUBIN 0.7 mg/dL (0.0-1.0)
[2016-05-28 21:12] LABS: ALKALINE PHOSPHATASE 384 IU/L (3-129); SERUM ETHYL ALCOHOL < 10 mg/dL
[2016-05-28 21:15] LABS: DIRECT BILIRUBIN 0.3 mg/dL (0.0-0.3)
[2016-05-28] MEDS ORDERED: ALPRAZOLAM1 MG PO (21:26)
[2016-05-28] MEDS ORDERED: METAGLIP 5/51 TABLET PO (21:47)
[2016-05-28] MEDS ORDERED: MORPHINE SULFAT30 M7 PO (21:47)
[2016-05-28 22:31] VITALS: BP 103/60
[2016-05-28 22:45] VITALS: BP 103/60
[2016-05-28 22:58] LABS: INFLUENZA A VIRAL ANTIGEN NEGATIVE; INFLUENZA B VIRAL ANTIGEN NEGATIVE
[2016-05-28 23:26] LABS: POINT-OF-CARE METER ID UU14149397
[2016-05-29 03:23] VITALS: BP 98/61
[2016-05-29 06:13] LABS: ADD MIUA? YES; BILIRUBIN NEGATIVE; BLOOD MODERATE; COLOR YELLOW ((YELLOW)); GLUCOSE (STRIP) NEGATIVE; KETONES NEGATIVE; LEUKOCYTES NEGATIVE; NITRITE NEGATIVE; PROTEIN (STRIP) 30; SPECIFIC GRAVITY 1.041 (1.000-1.030); UROBILINOGEN 0.2 MG/DL (0.2-1.0)
[2016-05-29 06:20] LABS: PHENCYCLIDINE NEGATIVE (25 ng/mL); THC CANNABINOIDS NEGATIVE (50 ng/mL)
[2016-05-29 06:21] LABS: ADD MEDTOX COMMENT Y; AMPHETAMINE NEGATIVE (500 ng/mL); BARBITURATES NEGATIVE (200 ng/mL); BENZODIAZEPINES PRESUMPTIVE POSITIVE (150 ng/mL); COCAINE PRESUMPTIVE POSITIVE (150 ng/mL); INTERNAL CONTROLS VALID? YES; METHADONE NEGATIVE (200 ng/mL); METHAMPHETAMINE NEGATIVE (500 ng/mL); OPIATES (MORPHINE) PRESUMPTIVE POSITIVE (100 ng/mL); OXYCODONE PRESUMPTIVE POSITIVE (100 ng/mL); PROPOXYPHENE NEGATIVE (300 ng/mL); TRICYCLIC ANTIDEPRESSANTS NEGATIVE (300 ng/mL)
[2016-05-29 06:24] LABS: BACTERIA NONE SEEN /HPF; EPITHELIAL CELLS RARE /HPF; MUCUS TRACE /LPF; RED BLOOD CELLS 20-30 /HPF (0-5); UCUL ADDED? NO; WHITE BLOOD CELLS 0-5 /HPF (0-5)
[2016-05-29 06:30] LABS: ANION GAP 8 MEQ/L (2-14); CHLORIDE 100 MEQ/L (99-109); GFR ESTIMATE (CALCULATED) > 59 mL/min/; GLUCOSE 114 mg/dL (70-99); POTASSIUM 3.8 MEQ/L (3.7-5.4); SAMPLE HEMOLYSIS CHECK 0; SAMPLE ICTERIC CHECK 0; SAMPLE LIPEMIA CHECK 0; SODIUM 136 MEQ/L (136-147); UREA NITROGEN (BUN) 16 mg/dL (9-23)
[2016-05-29 06:39] LABS: EOSINOPHIL (%) 1.5 % (0-5); EOSINOPHIL COUNT 0.2 K/uL (0-0.3); HEMATOCRIT 32.9 % (38.0-50.0); IMMATURE GRANULOCYTE (%) 0.3 % (0.0-0.7); LYMPHOCYTE COUNT 1.9 K/uL (1.0-2.8); MCHC 32.5 G/DL (30.0-36.0); MCV 89.2 FL (86-99); MEAN PLAT.VOLUME 10.4 uM^3 (9.0-12.4); MONOCYTE (%) 5.3 % (3-12); MONOCYTE COUNT 0.5 K/uL (0-0.8); NEUTROPHIL (%) 73.7 % (45-76); NEUTROPHIL COUNT 7.2 K/uL (1.8-6.4); PLATELET COUNT 132 K/uL (156-360); RBC DIS.WIDTH-CV 13.8 % (11.8-14.6); RBC DIS.WIDTH-SD 44.6 % (39-53); RED BLOOD COUNT 3.69 M/uL (4.00-5.50); WHITE BLOOD COUNT 9.8 K/uL (4.1-10.2)
[2016-05-29 07:08] VITALS: BP 109/65
[2016-05-29 07:20] LABS: BENZODIAZEPINES, URINE SCREEN POSITIVE (200 ng/mL)
[2016-05-29 11:32] VITALS: BP 126/78
[2016-05-29 11:54] LABS: POINT-OF-CARE METER ID UU14188577
[2016-05-29 15:28] VITALS: BP 120/70
[2016-05-29 23:48] VITALS: BP 116/75
[2016-05-30 04:20] LABS: POINT-OF-CARE METER ID UU14188577
[2016-05-30 06:13] LABS: ANION GAP 8 MEQ/L (2-14); CHLORIDE 101 MEQ/L (99-109); GFR ESTIMATE (CALCULATED) > 59 mL/min/; POTASSIUM 4.1 MEQ/L (3.7-5.4); SAMPLE HEMOLYSIS CHECK 0; SAMPLE ICTERIC CHECK 0; SAMPLE LIPEMIA CHECK 0; SODIUM 136 MEQ/L (136-147); UREA NITROGEN (BUN) 10 mg/dL (9-23)
[2016-05-30 06:14] LABS: GLUCOSE 215 mg/dL (70-99)
[2016-05-30 06:15] LABS: HEMATOCRIT 32.7 % (38.0-50.0); MCH 27.5 PG (29.0-34.0); MCHC 31.2 G/DL (30.0-36.0); MCV 88.1 FL (86-99); MEAN PLAT.VOLUME 10.8 uM^3 (9.0-12.4); PLATELET COUNT 141 K/uL (156-360); RBC DIS.WIDTH-CV 13.6 % (11.8-14.6); RBC DIS.WIDTH-SD 43.4 % (39-53); RED BLOOD COUNT 3.71 M/uL (4.00-5.50)
[2016-05-30 06:29] LABS: POINT-OF-CARE METER ID UU14188577
[2016-05-30 07:21] VITALS: BP 123/84
[2016-05-30 07:56] LABS: INTERNAL CONTROL VALID? YES
[2016-05-30] MEDS ORDERED: LEVAQUIN750 MG PO (09:44)
== END 2016-05-30 10:47 | disposition home or self-care (01) | DRG 871 ==
LOC: EME 16:14 → 3EAST 20:41 → EDOF 20:41 → 3EAST 22:21
PROVIDERS: Emergency Medicine; Hospitalist; Internal Medicine; Physician Assistant Medical
DX: A41.9 Sepsis, unspecified organism (principal); J18.9 Pneumonia, unspecified organism; F15.20 Other stimulant dependence, uncomplicated; F11.20 Opioid dependence, uncomplicated; C78.7 Secondary malignant neoplasm of liver and intrahepatic bile duct; E11.9 Type 2 diabetes mellitus without complications; G89.4 Chronic pain syndrome; S42.001G Fracture of unspecified part of right clavicle, subsequent encounter for fracture with delayed healing; S42.101 Fracture of unspecified part of scapula, right shoulder; S22.41XG Multiple fractures of ribs, right side, subsequent encounter for fracture with delayed healing; G89.29 Other chronic pain; W01.0XXD Fall on same level from slipping, tripping and stumbling without subsequent striking against object, subsequent encounter; Z85.038 Personal history of other malignant neoplasm of large intestine; Y95 Nosocomial condition; Z90.49 Acquired absence of other specified parts of digestive tract
CPT/HCPCS: 71020; 71275; 80048; 80076; 81003; 82948; 83605; 83735; 84484; 84999; 85025; 85027; 85379; 87040; 87070; 87205; 87449; 87502; 93005; 94640; 94640 76; 94799; 99202; 99281; 99284; 99285; G0480; J0456; J0692; J1170; J1200; J1644; J1815; J1885; J2270; J2543; J3010; J3370; J7050; J7120

== ENCOUNTER 2016-06-03 16:20 | Emergency (ER) | payer OTHER ==
[~2016-06-03] VITALS: Ht 175.3 cm; Wt 92.0 kg
[~2016-06-03 16:20] MED LIST changes: +METAGLIP 5/51 TABLET PO; +MORPHINE SULFAT30 M7 PO
[2016-06-03 17:26] LABS: HEMATOCRIT 33.2 % (38.0-50.0); MCH 28.8 PG (29.0-34.0); MCHC 31.6 G/DL (30.0-36.0); MCV 91.2 FL (86-99); MEAN PLAT.VOLUME 10.7 uM^3 (9.0-12.4); PLATELET COUNT 154 K/uL (156-360); RBC DIS.WIDTH-CV 13.1 % (11.8-14.6); RBC DIS.WIDTH-SD 43.4 % (39-53); RED BLOOD COUNT 3.64 M/uL (4.00-5.50); WHITE BLOOD COUNT 5.3 K/uL (4.1-10.2)
[2016-06-03 17:35] LABS: CHLORIDE 101 mEq/L (99-109); POTASSIUM 3.9 mEq/L (3.7-5.4); SODIUM 137 mEq/L (136-147)
[2016-06-03 17:36] LABS: GLUCOSE 264 mg/dL (70-99)
[2016-06-03 17:38] LABS: ANION GAP 7 MEQ/L (2-14)
[2016-06-03 17:40] LABS: GFR ESTIMATE (CALCULATED) > 59 mL/min/
[2016-06-03 17:41] LABS: UREA NITROGEN (BUN) 10 mg/dL (9-23)
[2016-06-03 19:38] VITALS: BP 142/75
== END 2016-06-03 19:42 | disposition home or self-care (01) ==
LOC: EME 16:20
PROVIDERS: Emergency Medicine
DX: S22.49XD Multiple fractures of ribs, unspecified side, subsequent encounter for fracture with routine healing (principal); M54.2 Cervicalgia; M54.9 Dorsalgia, unspecified; M79.621 Pain in right upper arm; M79.604 Pain in right leg; W10.8XXA Fall (on) (from) other stairs and steps, initial encounter; G89.29 Other chronic pain; Z86.14 Personal history of Methicillin resistant Staphylococcus aureus infection; Z85.05 Personal history of malignant neoplasm of liver; Z85.038 Personal history of other malignant neoplasm of large intestine
CPT/HCPCS: 70450; 71010; 71260; 72125; 72129; 72132; 72170; 73030; 73060; 74177; 80048; 85027; 99281; 99285

== ENCOUNTER 2016-06-10 18:57 | Emergency (ER) | payer OTHER ==
[~2016-06-10] VITALS: Ht 175.3 cm; Wt 90.6 kg
[2016-06-10 21:08] VITALS: BP 121/67
== END 2016-06-10 21:08 | disposition home or self-care (01) ==
LOC: EME 18:57
DX: S42.009D Fracture of unspecified part of unspecified clavicle, subsequent encounter for fracture with routine healing (principal); S22.49XD Multiple fractures of ribs, unspecified side, subsequent encounter for fracture with routine healing; M54.5 Low back pain; W18.30XA Fall on same level, unspecified, initial encounter; Z91.81 History of falling; G89.29 Other chronic pain; E11.9 Type 2 diabetes mellitus without complications; Z86.14 Personal history of Methicillin resistant Staphylococcus aureus infection; Z85.038 Personal history of other malignant neoplasm of large intestine; Z85.05 Personal history of malignant neoplasm of liver
CPT/HCPCS: 71020; 99281; 99284

== ENCOUNTER 2016-06-16 01:48 | Emergency (ER) | payer OTHER ==
[~2016-06-16] VITALS: Ht 175.3 cm; Wt 82.9 kg
[2016-06-16 05:28] LABS: TROP-I INTERPRETATION NEGATIVE; TROPONIN-I < 0.01 ng/mL (0.0-0.30)
[2016-06-16 05:55] LABS: BASOPHIL COUNT 0.1 K/uL (0-0.1); EOSINOPHIL COUNT 0.2 K/uL (0-0.3); HEMATOCRIT 47.8 % (38.0-50.0); IMMATURE GRANULOCYTE (%) 0.5 % (0.0-0.7); INSTRUMENT ABS NEUTROPHIL CT 4.8 K/uL; LYMPHOCYTE COUNT 2.3 K/uL (1.0-2.8); MCH 27.5 PG (29.0-34.0); MCHC 32.4 G/DL (30.0-36.0); MONOCYTE (%) 7.4 % (3-12); MONOCYTE COUNT 0.6 K/uL (0-0.8); NEUTROPHIL (%) 60.3 % (45-76); NEUTROPHIL COUNT 4.8 K/uL (1.8-6.4); RBC DIS.WIDTH-CV 12.9 % (11.8-14.6); RBC DIS.WIDTH-SD 39.7 % (39-53)
[2016-06-16 05:58] LABS: CHLORIDE 108 mEq/L (99-109); POTASSIUM 3.5 mEq/L (3.7-5.4); SODIUM 143 mEq/L (136-147)
[2016-06-16 05:59] LABS: GLUCOSE 99 mg/dL (70-99)
[2016-06-16 06:01] LABS: ATYPICAL LYMPHOCYTE 0.9 %; BAND NEUTROPHILS 0.9 % (0-8.0); EOSINOPHIL ABS CT 0.2; EOSINOPHILS 2.8 % (0-5.0); HEMATOLOGY COMMENT 1 SN; LYMPHOCYTES 25.5 % (15.0-45.0); MACROCYTES 1+; MCV 84.9 FL (86-99); MEAN PLAT.VOLUME 10.4 uM^3 (9.0-12.4); PLAT.SUFFICIENCY ADEQUATE; POLYCHROMASIA 1+; RED BLOOD COUNT 5.63 M/uL (4.00-5.50); SEG.NEUTROPHILS 62.3 % (46.0-76.0); WHITE BLOOD COUNT 7.9 K/uL (4.1-10.2)
[2016-06-16 06:01] LABS: ANION GAP 13 MEQ/L (2-14)
[2016-06-16 06:02] LABS: PLATELET COUNT UNABLE TO REPORT K/uL (156-360)
[2016-06-16 06:03] LABS: GFR ESTIMATE (CALCULATED) > 59 mL/min/
[2016-06-16 06:04] LABS: UREA NITROGEN (BUN) 12 mg/dL (9-23)
[2016-06-16] MEDS ORDERED: GLIPIZIDE-METF1 EAC2 PO (06:18)
[2016-06-16] MEDS ORDERED: OXYCODONE HCL10 MG PO (06:18)
[2016-06-16 07:06] VITALS: BP 130/84
== END 2016-06-16 07:01 | disposition home or self-care (01) ==
LOC: EME 01:48
PROVIDERS: Emergency Medicine
DX: S20.211A Contusion of right front wall of thorax, initial encounter (principal); W18.30XA Fall on same level, unspecified, initial encounter; Y93.01 Activity, walking, marching and hiking; S22.41XD Multiple fractures of ribs, right side, subsequent encounter for fracture with routine healing; W10.9XXD Fall (on) (from) unspecified stairs and steps, subsequent encounter; R06.00 Dyspnea, unspecified; E11.9 Type 2 diabetes mellitus without complications; Z85.038 Personal history of other malignant neoplasm of large intestine; Z85.05 Personal history of malignant neoplasm of liver
CPT/HCPCS: 71020; 71250; 73030; 80048; 84484; 85025; 93005; 99281; 99284; J2270; J7030

== ENCOUNTER 2016-06-21 02:05 | Emergency (ER) | payer OTHER ==
[~2016-06-21] VITALS: Ht 175.3 cm; Wt 86.4 kg
[~2016-06-21 02:05] MED LIST changes: +GLIPIZIDE-METF1 EAC2 PO
[2016-06-21] MEDS ORDERED: OXYCODONE HCL10 MG PO (06:40)
[2016-06-21 07:15] VITALS: BP 126/86
== END 2016-06-21 07:42 | disposition home or self-care (01) ==
LOC: EME 02:05
DX: S22.41XA Multiple fractures of ribs, right side, initial encounter for closed fracture (principal); S42.001A Fracture of unspecified part of right clavicle, initial encounter for closed fracture; G89.21 Chronic pain due to trauma; Z86.14 Personal history of Methicillin resistant Staphylococcus aureus infection; Z85.05 Personal history of malignant neoplasm of liver; Z85.038 Personal history of other malignant neoplasm of large intestine; E11.9 Type 2 diabetes mellitus without complications; Z79.84 Long term (current) use of oral hypoglycemic drugs
CPT/HCPCS: 71020; 73030; 99281; 99285; J1885

== ENCOUNTER 2016-07-05 10:25 | Emergency (ER) | payer OTHER ==
[~2016-07-05] VITALS: Ht 175.3 cm; Wt 86.4 kg
[2016-07-05] MEDS ORDERED: ATARAX,VISTARIL25 MG PO (15:41)
[2016-07-05 15:42] VITALS: BP 123/63
== END 2016-07-05 15:46 | disposition home or self-care (01) ==
LOC: EME 10:25
DX: S20.20XA Contusion of thorax, unspecified, initial encounter (principal); M25.511 Pain in right shoulder; G89.29 Other chronic pain; V86.59XA Driver of other special all-terrain or other off-road motor vehicle injured in nontraffic accident, initial encounter; Z91.81 History of falling; E11.9 Type 2 diabetes mellitus without complications; Z86.14 Personal history of Methicillin resistant Staphylococcus aureus infection; Z85.05 Personal history of malignant neoplasm of liver; Z85.038 Personal history of other malignant neoplasm of large intestine
CPT/HCPCS: 99281; 99283; J3010

== ENCOUNTER 2016-09-17 11:39 | Emergency (ER) | payer OTHER ==
[~2016-09-17] VITALS: Ht 175.3 cm; Wt 84.1 kg
[~2016-09-17 11:39] MED LIST changes: +ATARAX,VISTARIL25 MG PO
[2016-09-17 12:55] VITALS: BP 138/91
== END 2016-09-17 15:08 | disposition left against medical advice (07) ==
LOC: EME 11:39
DX: R07.81 Pleurodynia (principal); M54.5 Low back pain; G89.21 Chronic pain due to trauma; E11.9 Type 2 diabetes mellitus without complications; Z85.038 Personal history of other malignant neoplasm of large intestine; Z86.14 Personal history of Methicillin resistant Staphylococcus aureus infection; Z85.05 Personal history of malignant neoplasm of liver; Z79.84 Long term (current) use of oral hypoglycemic drugs
CPT/HCPCS: 81003; 99281; 99283

== ENCOUNTER 2016-09-24 21:27 | Emergency (ER) | payer OTHER ==
[~2016-09-24] VITALS: Ht 175.3 cm; Wt 97.2 kg
[2016-09-24 21:51] LABS: HEMATOCRIT 46.3 % (38.0-50.0); MCH 29.7 PG (29.0-34.0); MCV 89.7 FL (86-99); MEAN PLAT.VOLUME 10.2 uM^3 (9.0-12.4); PLATELET COUNT 178 K/uL (156-360); RBC DIS.WIDTH-CV 15.2 % (11.8-14.6); RBC DIS.WIDTH-SD 49.5 % (39-53); RED BLOOD COUNT 5.16 M/uL (4.00-5.50); WHITE BLOOD COUNT 15.6 K/uL (4.1-10.2)
[2016-09-24 22:01] LABS: CHLORIDE 104 mEq/L (99-109); POTASSIUM 3.7 mEq/L (3.7-5.4); SODIUM 140 mEq/L (136-147)
[2016-09-24 22:03] LABS: GLUCOSE 366 mg/dL (70-99)
[2016-09-24 22:04] LABS: ANION GAP 20 MEQ/L (2-14)
[2016-09-24 22:06] LABS: SERUM ETHYL ALCOHOL 23 mg/dL
[2016-09-24 22:07] LABS: GFR ESTIMATE (CALCULATED) 56 mL/min/
[2016-09-24 22:08] LABS: UREA NITROGEN (BUN) 13 mg/dL (9-23)
[2016-09-24 22:10] LABS: SALICYLATE < 5.0 MG/DL (15-30)
[2016-09-24 23:01] LABS: ADD MEDTOX COMMENT Y; AMPHETAMINE NEGATIVE (500 ng/mL); BARBITURATES NEGATIVE (200 ng/mL); BENZODIAZEPINES PRESUMPTIVE POSITIVE (150 ng/mL); COCAINE PRESUMPTIVE POSITIVE (150 ng/mL); INTERNAL CONTROLS VALID? YES; METHADONE NEGATIVE (200 ng/mL); METHAMPHETAMINE NEGATIVE (500 ng/mL); OPIATES (MORPHINE) PRESUMPTIVE POSITIVE (100 ng/mL); OXYCODONE NEGATIVE (100 ng/mL); PHENCYCLIDINE NEGATIVE (25 ng/mL); PROPOXYPHENE NEGATIVE (300 ng/mL); THC CANNABINOIDS NEGATIVE (50 ng/mL); TRICYCLIC ANTIDEPRESSANTS NEGATIVE (300 ng/mL)
[2016-09-24 23:31] LABS: BENZODIAZEPINES, URINE SCREEN POSITIVE (200 ng/mL); OPIATES QUANTITATIVE VALUE 0 NG/ML
[2016-09-25 00:54] LABS: POINT-OF-CARE METER ID UU13113702
[2016-09-25 01:00] VITALS: BP 123/80
== END 2016-09-25 01:07 | disposition home or self-care (01) ==
LOC: EME 21:27
PROVIDERS: Emergency Medicine
DX: T40.601A Poisoning by unspecified narcotics, accidental (unintentional), initial encounter (principal); G89.29 Other chronic pain; M25.551 Pain in right hip; M54.5 Low back pain; S01.111A Laceration without foreign body of right eyelid and periocular area, initial encounter; W18.30XA Fall on same level, unspecified, initial encounter; E11.65 Type 2 diabetes mellitus with hyperglycemia; F10.99 Alcohol use, unspecified with unspecified alcohol-induced disorder; M50.322 Other cervical disc degeneration at C5-C6 level; M51.37 Other intervertebral disc degeneration, lumbosacral region; Z85.038 Personal history of other malignant neoplasm of large intestine; Z85.05 Personal history of malignant neoplasm of liver
CPT/HCPCS: 70450; 72070; 72100; 72125; 73502; 80048; 82948; 84999; 85027; 93005; 99281; 99285; G0480; J1815; J2310; J7030

== ENCOUNTER 2016-10-12 09:03 | Emergency (ER) | payer OTHER ==
[~2016-10-12] VITALS: Ht 177.8 cm; Wt 92.0 kg
[2016-10-12 09:17] LABS: POINT-OF-CARE METER ID UU14100415
[2016-10-12 09:20] LABS: HEMATOCRIT 40.4 % (38.0-50.0); MCH 30.7 PG (29.0-34.0); MCHC 34.2 G/DL (30.0-36.0); MCV 89.8 FL (86-99); MEAN PLAT.VOLUME 10.2 uM^3 (9.0-12.4); PLATELET COUNT 176 K/uL (156-360); RBC DIS.WIDTH-CV 13.5 % (11.8-14.6); RBC DIS.WIDTH-SD 44.7 % (39-53); WHITE BLOOD COUNT 9.4 K/uL (4.1-10.2)
[2016-10-12 09:29] LABS: CHLORIDE 102 mEq/L (99-109); POTASSIUM 3.3 mEq/L (3.7-5.4); SODIUM 140 mEq/L (136-147)
[2016-10-12 09:31] LABS: GLUCOSE 257 mg/dL (70-99)
[2016-10-12 09:33] LABS: ANION GAP 18 MEQ/L (2-14)
[2016-10-12 09:35] LABS: GFR ESTIMATE (CALCULATED) > 59 mL/min/
[2016-10-12 09:36] LABS: UREA NITROGEN (BUN) 20 mg/dL (9-23)
[2016-10-12 10:36] VITALS: BP 120/71
== END 2016-10-12 11:31 | disposition home or self-care (01) ==
LOC: EME 09:03
PROVIDERS: Emergency Medicine
DX: T40.601A Poisoning by unspecified narcotics, accidental (unintentional), initial encounter (principal); E11.9 Type 2 diabetes mellitus without complications
CPT/HCPCS: 71010; 80048; 82948; 85027; 93005; 99281; 99285; J2310; J7030

== ENCOUNTER 2016-12-15 14:37 | Emergency (ER) | payer OTHER ==
[~2016-12-15] VITALS: Ht 175.3 cm; Wt 91.6 kg
[2016-12-15 16:40] LABS: HEMATOCRIT 44.1 % (38.0-50.0); MCH 30.9 PG (29.0-34.0); MCHC 34.7 G/DL (30.0-36.0); MCV 89.1 FL (86-99); MEAN PLAT.VOLUME 10.4 uM^3 (9.0-12.4); PLATELET COUNT 159 K/uL (156-360); RBC DIS.WIDTH-CV 12.5 % (11.8-14.6); RBC DIS.WIDTH-SD 40.8 % (39-53); RED BLOOD COUNT 4.95 M/uL (4.00-5.50); WHITE BLOOD COUNT 6.3 K/uL (4.1-10.2)
[2016-12-15 16:48] LABS: CHLORIDE 101 mEq/L (99-109); POTASSIUM 3.2 mEq/L (3.7-5.4); SODIUM 139 mEq/L (136-147)
[2016-12-15 16:50] LABS: GLUCOSE 161 mg/dL (70-99)
[2016-12-15 16:50] LABS: ADD MIUA? YES; BILIRUBIN NEGATIVE; BLOOD MODERATE; COLOR YELLOW ((YELLOW)); GLUCOSE (STRIP) NEGATIVE; KETONES 5; LEUKOCYTES NEGATIVE; NITRITE NEGATIVE; PROTEIN (STRIP) NEGATIVE; SPECIFIC GRAVITY 1.017 (1.000-1.030); UROBILINOGEN 0.2 MG/DL (0.2-1.0)
[2016-12-15 16:51] LABS: ANION GAP 20 MEQ/L (2-14)
[2016-12-15 16:53] LABS: BACTERIA NONE SEEN /HPF; EPITHELIAL CELLS NONE SEEN /HPF; MUCUS NONE SEEN /LPF; RED BLOOD CELLS 0-5 /HPF (0-5); UCUL ADDED? NO; WHITE BLOOD CELLS 0-5 /HPF (0-5)
[2016-12-15 16:54] LABS: GFR ESTIMATE (CALCULATED) > 59 mL/min/
[2016-12-15 16:55] LABS: UREA NITROGEN (BUN) 11 mg/dL (9-23)
[2016-12-15] MEDS ORDERED: NAPROSYN500 MG PO (19:34)
[2016-12-15] MEDS ORDERED: SKELAXIN800 MG PO (19:34)
[2016-12-15 20:06] VITALS: BP 128/67
== END 2016-12-15 20:15 | disposition home or self-care (01) ==
LOC: EME 14:37
PROVIDERS: Physician Assistant
DX: S20.211A Contusion of right front wall of thorax, initial encounter (principal); S39.012A Strain of muscle, fascia and tendon of lower back, initial encounter; R10.9 Unspecified abdominal pain; V18.0XXA Pedal cycle driver injured in noncollision transport accident in nontraffic accident, initial encounter; Y93.55 Activity, bike riding; Z91.14 Patient's other noncompliance with medication regimen; E11.9 Type 2 diabetes mellitus without complications; Z79.84 Long term (current) use of oral hypoglycemic drugs
CPT/HCPCS: 71020; 72100; 74177; 80048; 81003; 85027; 99281; 99284; J1885; J3010; J7030

== ENCOUNTER 2017-04-08 01:30 | Observation (INO) | payer OTHER ==
[~2017-04-08] VITALS: Ht 172.7 cm; Wt 98.1 kg
[~2017-04-08 01:30] MED LIST changes: +NAPROSYN500 MG PO; +SKELAXIN800 MG PO
[2017-04-08 02:05] LABS: CARBOXY HGB 0.7 % (0-5); METHEMOGLOBIN 0.2 % (0-1.5); PCO2 46 mm Hg (35-45); PO2 78 mm Hg (80-100)
[2017-04-08 02:06] LABS: BICARBONATE 22.6 mEq/L (22-26); COMMENTS - BLOOD GASES A+C+; DEVICE NRM; O2 FLOW 15 L/MIN; SITE RR; TOTAL RESP RATE 28 resp/min
[2017-04-08 02:10] LABS: BASOPHIL (%) 0.3 % (0-1); EOSINOPHIL (%) 0.7 % (0-5); EOSINOPHIL COUNT 0.1 K/uL (0-0.3); HEMATOCRIT 41.4 % (38.0-50.0); HEMOGLOBIN 14.1 G/DL (12.5-16.6); IMMATURE GRANULOCYTE (%) 1.2 % (0.0-0.7); LYMPHOCYTE (%) 14.5 % (15-42); LYMPHOCYTE COUNT 1.4 K/uL (1.0-2.8); MCH 30.4 PG (29.0-34.0); MCHC 34.1 G/DL (30.0-36.0); MCV 89.2 FL (86-99); MONOCYTE (%) 5.9 % (3-12); MONOCYTE COUNT 0.6 K/uL (0-0.8); NEUTROPHIL (%) 77.4 % (45-76); NEUTROPHIL COUNT 7.5 K/uL (1.8-6.4); PLATELET COUNT 151 K/uL (156-360); RBC DIS.WIDTH-CV 12.5 % (11.8-14.6); RBC DIS.WIDTH-SD 40.7 % (39-53); RED BLOOD COUNT 4.64 M/uL (4.00-5.50); WHITE BLOOD COUNT 9.7 K/uL (4.1-10.2)
[2017-04-08 02:18] LABS: CHLORIDE 106 mEq/L (99-109); POTASSIUM 3.5 mEq/L (3.7-5.4); PTT 24.2 SEC (25-37); SODIUM 138 mEq/L (136-147)
[2017-04-08 02:20] LABS: GLUCOSE 189 mg/dL (70-99)
[2017-04-08 02:23] LABS: SERUM ETHYL ALCOHOL < 10 mg/dL
[2017-04-08 02:24] LABS: CREATININE 0.9 mg/dL (0.6-1.3); GFR ESTIMATE (CALCULATED) > 59 mL/min/ (58.99-99999)
[2017-04-08 02:25] LABS: UREA NITROGEN (BUN) 13 mg/dL (9-23)
[2017-04-08 02:31] LABS: TROP-I INTERPRETATION NEGATIVE; TROPONIN-I < 0.01 ng/mL (0.0-0.30)
[2017-04-08 06:50] LABS: AMPHETAMINE NEGATIVE (500 ng/mL); BARBITURATES NEGATIVE (200 ng/mL); BENZODIAZEPINES PRESUMPTIVE POSITIVE (150 ng/mL); BUPRENORPHINE NEGATIVE (10 ng/mL); COCAINE NEGATIVE (150 ng/mL); METHADONE NEGATIVE (200 ng/mL); METHAMPHETAMINE NEGATIVE (500 ng/mL); OPIATES (MORPHINE) PRESUMPTIVE POSITIVE (100 ng/mL); OXYCODONE NEGATIVE (100 ng/mL); PHENCYCLIDINE NEGATIVE (25 ng/mL); PROPOXYPHENE NEGATIVE (300 ng/mL); THC CANNABINOIDS NEGATIVE (50 ng/mL); TRICYCLIC ANTIDEPRESSANTS NEGATIVE (300 ng/mL)
[2017-04-08 07:26] LABS: BENZODIAZEPINES, URINE SCREEN POSITIVE (200 ng/mL)
[2017-04-08] MEDS ORDERED: AMBIEN10 MG PO (15:39)
[2017-04-08] MEDS ORDERED: KLONOPIN0.5 M1 PO (15:39)
[2017-04-08] MEDS ORDERED: OXYCODONE HCL10 MG PO (15:40)
[2017-04-08] MEDS ORDERED: MS CONTIN,ORAMO15 M1 PO (15:40)
[2017-04-08 17:05] VITALS: BP 121/67
[2017-04-08 18:18] LABS: TROP-I INTERPRETATION NEGATIVE; TROPONIN-I 0.02 ng/mL (0.0-0.30)
[2017-04-08 20:01] VITALS: BP 118/64
[2017-04-08 20:34] LABS: APPEARANCE CLEAR ((CLEAR)); BILIRUBIN NEGATIVE; BLOOD NEGATIVE; COLOR YELLOW ((YELLOW)); GLUCOSE (STRIP) NEGATIVE; KETONES NEGATIVE; LEUKOCYTES NEGATIVE; NITRITE NEGATIVE; PROTEIN (STRIP) 30; SPECIFIC GRAVITY 1.031 (1.000-1.030); UCUL ADDED? NO; UROBILINOGEN 0.2 MG/DL (0.2-1.0)
[2017-04-08 23:45] VITALS: BP 130/64
[2017-04-09 01:17] LABS: TROP-I INTERPRETATION NEGATIVE; TROPONIN-I 0.01 ng/mL (0.0-0.30)
[2017-04-09 03:46] VITALS: BP 111/68
[2017-04-09 05:39] LABS: BASOPHIL (%) 0.3 % (0-1); EOSINOPHIL (%) 1.6 % (0-5); EOSINOPHIL COUNT 0.1 K/uL (0-0.3); HEMATOCRIT 35.2 % (38.0-50.0); IMMATURE GRANULOCYTE (%) 0.6 % (0.0-0.7); LYMPHOCYTE (%) 17.1 % (15-42); LYMPHOCYTE COUNT 1.2 K/uL (1.0-2.8); MCH 30.7 PG (29.0-34.0); MCHC 33.2 G/DL (30.0-36.0); MCV 92.4 FL (86-99); MONOCYTE (%) 7.8 % (3-12); MONOCYTE COUNT 0.5 K/uL (0-0.8); NEUTROPHIL (%) 72.6 % (45-76); NEUTROPHIL COUNT 4.9 K/uL (1.8-6.4); RBC DIS.WIDTH-CV 12.7 % (11.8-14.6); RBC DIS.WIDTH-SD 42.8 % (39-53); RED BLOOD COUNT 3.81 M/uL (4.00-5.50); WHITE BLOOD COUNT 6.8 K/uL (4.1-10.2)
[2017-04-09 05:40] LABS: HEMOGLOBIN 11.7 G/DL (12.5-16.6)
[2017-04-09 05:50] LABS: TROP-I INTERPRETATION NEGATIVE; TROPONIN-I 0.02 ng/mL (0.0-0.30)
[2017-04-09 06:04] LABS: ALBUMIN 3.3 G/DL (3.2-4.8); ALKALINE PHOSPHATASE 57 IU/L (3-129); ALT (GPT) 52 IU/L (3-49); AST (GOT) 24 IU/L (2-34); CHLORIDE 108 MEQ/L (99-109); CREATININE 0.9 MG/DL (0.6-1.3); GFR ESTIMATE (CALCULATED) > 59 mL/min/ (58.99-99999); GLUCOSE 141 mg/dL (70-99); POTASSIUM 3.8 MEQ/L (3.7-5.4); SODIUM 140 MEQ/L (136-147); TOTAL BILIRUBIN 0.8 MG/DL (0.0-1.0); TOTAL PROTEIN 5.4 G/DL (6.4-8.3); UREA NITROGEN (BUN) 8 mg/dL (9-23)
[2017-04-09 06:22] LABS: PLATELET COUNT 86 K/uL (156-360)
[2017-04-09 09:00] VITALS: BP 133/75
[2017-04-09] MEDS ORDERED: AUGMENTIN875 MG PO (11:30)
[2017-04-09] MEDS ORDERED: CALCIUM 500 +1 EACH PO (11:32)
[2017-04-09 12:00] VITALS: BP 151/87
== END 2017-04-09 14:49 | disposition home or self-care (01) ==
LOC: EME → EDBD 01:30 → EME 01:30 → 4EAST 03:44 → EDOF 03:44 → ENRESERV 03:57 → 4EAST 16:37
PROVIDERS: Emergency Medicine; Hospitalist
DX: J69.0 Pneumonitis due to inhalation of food and vomit (principal); J96.01 Acute respiratory failure with hypoxia; A41.9 Sepsis, unspecified organism; T40.1X1A Poisoning by heroin, accidental (unintentional), initial encounter; E11.9 Type 2 diabetes mellitus without complications; F19.10 Other psychoactive substance abuse, uncomplicated; G89.29 Other chronic pain; E83.51 Hypocalcemia; D69.6 Thrombocytopenia, unspecified; Z85.038 Personal history of other malignant neoplasm of large intestine; D72.819 Decreased white blood cell count, unspecified; E66.9 Obesity, unspecified; Z68.32 Body mass index [BMI] 32.0-32.9, adult; Z90.49 Acquired absence of other specified parts of digestive tract; Z92.21 Personal history of antineoplastic chemotherapy
CPT/HCPCS: 36600; 71045; 71275; 80048; 80053; 81003; 82803; 83605; 84484; 84999; 85025; 85027; 85610; 85730; 87040; 87502; 93005; 94640; 94640 76; 94799; 99202; 99281; 99285; G0378; G0480; J0295; J0692; J1650; J2310; J3480; J7030; J7050

== ENCOUNTER 2017-11-15 15:42 | Emergency (ER) | payer OTHER ==
[~2017-11-15] VITALS: Ht 172.7 cm; Wt 94.2 kg
[~2017-11-15 15:42] MED LIST changes: +AMBIEN10 MG PO; +AUGMENTIN875 MG PO; +CALCIUM 500 +1 EACH PO; +KLONOPIN0.5 M1 PO; +MS CONTIN,ORAMO15 M1 PO
[2017-11-15 20:33] VITALS: BP 134/86
== END 2017-11-15 20:34 | disposition home or self-care (01) ==
LOC: EME 15:42
DX: F11.10 Opioid abuse, uncomplicated (principal); G89.29 Other chronic pain; M54.9 Dorsalgia, unspecified; M79.606 Pain in leg, unspecified; F41.9 Anxiety disorder, unspecified; Z92.21 Personal history of antineoplastic chemotherapy; Z85.9 Personal history of malignant neoplasm, unspecified; Z86.14 Personal history of Methicillin resistant Staphylococcus aureus infection
CPT/HCPCS: 90839; 99281; 99284